=== PATIENT | male | born 1940 | race Caucasian/White ===

== ENCOUNTER 2016-10-02 11:56 | Inpatient (IN) ==
[2016-10-02] MEDS ORDERED: HYDROmorphone 2 MG/ML SYRINGE IV PRN (12:51)
[2016-10-02] MEDS ORDERED: oxyCODONE/APAP 5/325MG TABLET PO PRN (12:51)
[2016-10-02 13:48] LABS: Mean Cell Volume 88.4 fL (80.0-100.0); Mean Corpuscular HGB Conc 33.6 g/dL (31.0-36.0); Mean Corpuscular Hemoglobin 29.7 pg (26.0-34.0); Platelet Count 277 K/mcL (140-440); RBC 4.26 M/mcL (4.50-5.90); Red Cell Distribution Width 15.4 % (11.5-14.5)
[2016-10-02] MEDS ORDERED: 0.9 % SODIUM CHLORIDE 10 ML SYRINGE IV SCH (14:00)
[2016-10-02 14:07] LABS: Eosinophils % (Manual) 6 % (0-7); Lymphocytes % 11 % (15-49); Monocytes % (Manual) 5 % (1-12); Platelet Estimate NORMAL (NORMAL); RBC Morphology NORMAL (NORMAL); Segmented Neutrophils % 78 % (38-78)
[2016-10-02 14:14] LABS: ALT/SGPT 10 U/l (0-40); Albumin 4.2 gm/dL (3.2-5.2); Albumin/Globulin Ratio 1.1 (1.0-2.3); Alkaline Phosphatase 69 U/L (39-117); Bilirubin,Direct < 0.2 mg/dL (0.0-0.3); Blood Urea Nitrogen 18 mg/dl (8-23); Gamma Glutamyl Transpeptidase 52 U/L (8-61); Magnesium 1.9 mg/dL (1.6-2.5); Uric Acid 8.2 mg/dL (2.5-8.0)
[2016-10-02] MEDS: 0.9 % SODIUM CHLORIDE 1,000 ML IV SCH (14:54)
[2016-10-02] MEDS: 0.9 % SODIUM CHLORIDE 10 ML SYRINGE IV SCH ×2 (14:54→21:59)
[2016-10-02] MEDS ORDERED: PHYTONADIONE 10 MG in 0.9 % SODIUM CHLORIDE 50 ML IV ONE (17:40)
[2016-10-02] MEDS ORDERED: 0.9 % SODIUM CHLORIDE 250 ML IV SCH (17:45)
[2016-10-02] MEDS: PHYTONADIONE 10 MG/ML AMPUL SQ SCH (18:12)
--- NOTE | 2016-10-02 18:19 | General Surg History&Physical ---
History of Present Illness Patient information: Note initiated : 10/02/16 at 6:16 pm Service Date, if different from initiated Date: [] Patient: Julian Nettles a 76 y/o M admitted on 10/02/16 for pneumothorax. Chief Complaint: [] HPI: Mr. Nettles is a 76 year old M with history of persistent pneumothorax left side. The patient has a left lung mass that was biopsied on 26 September. He had a resultant pneumothorax that was monitored for 24 hours but increased in size. He finally had a catheter thoracostomy with Heimlich valve placed on 28 September. The pneumothorax which was 20% decreased in size initially but subsequently has increased in size and is now greater than 15%. The patient has been on Coumadin and needs to have his clotting parameters corrected. He will keep the Heimlich valve in place until I can give him vitamin K and fresh frozen plasma. He and his were counseled for closed tube thoracostomy which will be done tomorrow. He will then be hooked to suction and monitored until his pneumothorax has resolved. Review of Systems - Constitutional headache(s), malaise, weakness - EENT Nose, mouth and throat: abnormal hearing - Cardiovascular pedal edema, no chest pain at rest, no claudication, no dyspnea on exertion - Respiratory pain with cough, other (Moderate shortness of breath;) - Gastrointestinal no bloating, no constipation, no dysphagia, no fecal incontinence, no nausea, no vomiting - Genitourinary difficulty urinating, no urinary incontinence - Musculoskeletal abnormal gait, arthralgias, joint swelling, muscle weakness - Integumentary no changing lesions, no new lesions, no pruritus, no rash - Neurological confusion, dizziness, weakness, no abnormal gait - Psychiatric confusion, other (Early dementia) - Endocrine no excessive sweating, no palpitations - Hematologic/Lymphatic easy bleeding, easy bruising, no lymphadenopathy - Allergic/Immunologic no tongue swelling, no throat swelling, no itchy eyes, no uticaria, no wheezing , no lip swelling Past History Past medical history: Diabetes mellitus Atrial fibrillation Chronic Coumadin therapy Stroke 1997 Degenerative arthritis Dementia Past surgical history: AICD 2000 Coronary artery bypass graft 1992 Past family history: Mother due to coronary artery disease and COPD Father due to coronary artery disease Medications and Allergies Home Medications Medication Instructions Recorded Confirmed Type Atenolol [Tenormin] 50 mg PO BID 02/28/15 09/26/16 History Atorvastatin [Lipitor] 20 mg PO HS 02/28/15 09/26/16 History Cholecalciferol (Vitamin D3) 50,000 unit PO WEEKLY 02/28/15 09/26/16 History [Vitamin D] Digoxin [Lanoxin] 250 mcg PO DAILY 02/28/15 09/26/16 History Ezetimibe [Zetia] 10 mg PO DAILY 02/28/15 09/26/16 History Megestrol Acetate [Megace] 20 mg PO BID 02/28/15 09/26/16 History Memantine [Namenda] 10 mg PO DAILY 02/28/15 09/26/16 History Omeprazole [PriLOSEC] 20 mg PO ACB 02/28/15 09/26/16 History Rivastigmine [Exelon] 1 each TD 02/28/15 History Spironolactone [Aldactone] 25 mg PO DAILY 02/28/15 09/26/16 History Warfarin [Coumadin] 2 mg PO DAILY 02/28/15 09/26/16 History Warfarin [Coumadin] 4 mg PO DAILY 02/28/15 09/26/16 History glipiZIDE [Glucotrol Xl] 5 mg PO HS 02/28/15 09/26/16 History metFORMIN HCL [Glucophage] 500 mg PO BID 02/28/15 09/26/16 History morphine [Ms Contin] 30 mg PO HS 02/28/15 09/26/16 History Allergies Allergy/AdvReac Type Severity Reaction Status Date / Time Sulfa (Sulfonamide Allergy Severe SWELLING Verified 09/26/16 10:35 Antibiotics) [SULFA (SULFONAMIDE ANTIBIOTICS)] Exam Temp Pulse Resp BP Pulse Ox 96.6 F L 50 L 16 123/69 96 10/02/16 16:00 10/02/16 13:01 10/02/16 16:00 10/02/16 16:00 10/02/16 16:00 - General physical appearance well developed, well nourished, no distress - Eyes PERRL, normal ocular movement - ENT normal pinna, normal nares, normal mucosa, no hearing loss, no congestion, dentures (Full dentures) - Head Head exam IM: Present: atraumatic, normocephalic - Neck no masses, no bruits, trachea midline, no lymphadectomy, no venous distension - Cardiovascular Cardiovascular exam IM: Present: normal rate and rhythm, RRR, +S1, +S2. Absent : JVD - Respiratory normal expansion, normal respiratory effort, clear to percussion, other (Coarse tubular breath sounds both lower lobes but with decreased breath sounds on the left even at the apex) - Abdomen Abdomen: Present: soft, non tender, bowel sounds. Absent: organomegaly, masses Hernia: Present: none - Genitourinary Present: normal penis with no external lesions - Integumentary Present: no rash, no growths, no abnormal pigmentation - Neurologic Present: normal coordination, normal sensation - Musculoskeletal Present: normal posture, other (Irregular gait with assist with a cane) - Psychiatric Present: oriented to time, oriented to person, oriented to place, speech is normal, other (Early dementia for time and place) Assessment and Plan (1) Pneumothorax of left lung after biopsy Patient will have closed tube thoracostomy after his clotting parameters are corrected. The needle catheter and Heimlich valve will remain in place until the chest tube is inserted Status: Acute (2) Diabetes mellitus type 2 in nonobese Status: Acute (3) Atrial fibrillation Status: Acute (4) Dementia Status: Acute
[2016-10-02] MEDS: FAMOTIDINE/PF 20 MG/2 ML VIAL IV SCH (21:59)
[2016-10-03] MEDS: PHYTONADIONE 10 MG/ML AMPUL SQ SCH (02:26)
[2016-10-03] MEDS: 0.9 % SODIUM CHLORIDE 1,000 ML IV SCH ×3 (02:30→17:27)
[2016-10-03] MEDS: 0.9 % SODIUM CHLORIDE 10 ML SYRINGE IV SCH ×3 (05:36→20:34)
[2016-10-03] MEDS ORDERED: 0.9 % SODIUM CHLORIDE 250 ML IV SCH (07:45)
[2016-10-03] MEDS: morphine 30 MG TAB.SR.12H PO SCH ×2 (08:07→20:31)
[2016-10-03] MEDS: MEMANTINE 10 MG TABLET PO SCH ×2 (08:09→20:31)
[2016-10-03] MEDS: OMEPRAZOLE 20 MG CAPSULE PO SCH (08:09)
--- NOTE | 2016-10-03 08:09 | XRay Report ---
HISTORY: Reason for Exam:f/u of pneumothorax FINDINGS: There is a small left apical pneumothorax which is less than 5% in volume. This has improved significantly since 10/02/16. The Heimlich chest tube remains positioned medially at the left apex. There is still consolidation in the left lower lobe which may be a combination of tumor and superimposed atelectasis/pneumonia. 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 The heart size is normal. IMPRESSION: Improving left-sided pneumothorax Interpreted and Authenticated by: Rajinder Mallory 10/03/16
[2016-10-03] MEDS: metFORMIN 500 MG TABLET PO SCH ×2 (08:10→17:39)
[2016-10-03] MEDS: ATENOLOL 50 MG TABLET PO SCH ×2 (08:10→20:31)
[2016-10-03] MEDS: FAMOTIDINE/PF 20 MG/2 ML VIAL IV SCH ×2 (08:10→20:31)
[2016-10-03] MEDS: MEGESTROL ACETATE 40 MG TABLET PO SCH ×2 (13:31→20:32)
[2016-10-03] MEDS: RIVASTIGMINE 9.5 MG TOPICAL SCH (13:32)
--- NOTE | 2016-10-03 13:35 | General Surgery Progress Note ---
Subjective Patient reports: feels better, pain is less, tolerating a regular diet, afebrile Narrative: Note initiated : 10/03/16 at 1:33 pm Service Date, if different from initiated Date: [] Patient: Julian Nettles 76 y/o M admitted on 10/02/16 for Pneumothorax of Left Lung after Biopsy. Chief Complaint: [Mr. Mayberry feels much better. He does not have any increased shortness of breath. He had no difficulty during the night. Chest x-ray this morning shows his pneumothorax is down to 5%. Since he is improving I would delay insertion of the larger chest tube. I have elected to place the catheter tube to waterseal with 20 cm of continuous suction. Hopefully this will be adequate enough to reduce his pneumothorax and he will not need to have a larger chest tube placed. I discussed this with the patient and his . I also discussed it with radiology who is agreeable with this approach.] Objective Temp Pulse Resp BP Pulse Ox 97.8 F 90 16 119/68 99 10/03/16 12:59 10/03/16 12:59 10/03/16 12:59 10/03/16 12:59 10/03/16 12:59 - Additional Data Intake & Output - Last 24 hours: Intake & Output 10/01/16 10/02/16 10/03/16 10/04/16 05:59 05:59 05:59 05:59 Intake Total 926 / 926 2309 / 2309 Output Total 450 / 450 1260 / 1260 Balance 476 / 476 1049 / 1049 Weight 150 lb - General physical appearance no distress, chronically ill - Eyes PERRL - ENT no congestion - Neck no venous distension - Respiratory other (Still with coarse tubular breath sounds at both bases much more prominent on the left than on the right but with good breath sounds bilaterally) - Cardiovascular Cardiovascular exam: Present: normal rate and rhythm, irregular rhythm, +S1, + S2. Absent: JVD - Abdomen soft, non tender ( abdomen is benign and nontender.) - Musculoskeletal other (Needs assistance with gait) - Psychiatric other ( oriented to person and place with poor long and short-term memory) - Labs 10/02/16 13:13 10/02/16 13:13 Diabetes panel 10/02/16 Range/Units 13:13 Sodium 138 (133-145) mmol/L Potassium 4.9 (3.3-5.1) mmol/L Chloride 101 (96-108) mmol/L Carbon Dioxide 24 (22-30) mmol/L BUN 18 (8-23) mg/dl Creatinine 1.2 (0.7-1.2) mg/dl Glucose 87 (70-105) mg/dL Calcium 10.2 (8.6-10.4) mg/dl AST 12 (0-37) U/l ALT 10 (0-40) U/l Alkaline Phosphatase 69 (39-117) U/L Total Protein 8.1 (5.9-8.4) gm/dL Albumin 4.2 (3.2-5.2) gm/dL Triglycerides 347 H (<150) mg/dl Calcium panel 10/02/16 Range/Units 13:13 Calcium 10.2 (8.6-10.4) mg/dl Phosphorus 3.7 (2.7-4.5) mg/dL Albumin 4.2 (3.2-5.2) gm/dL Pituitary panel 10/02/16 Range/Units 13:13 Sodium 138 (133-145) mmol/L Potassium 4.9 (3.3-5.1) mmol/L Chloride 101 (96-108) mmol/L Carbon Dioxide 24 (22-30) mmol/L BUN 18 (8-23) mg/dl Creatinine 1.2 (0.7-1.2) mg/dl Glucose 87 (70-105) mg/dL Calcium 10.2 (8.6-10.4) mg/dl Adrenal panel 10/02/16 Range/Units 13:13 Sodium 138 (133-145) mmol/L Potassium 4.9 (3.3-5.1) mmol/L Chloride 101 (96-108) mmol/L Carbon Dioxide 24 (22-30) mmol/L BUN 18 (8-23) mg/dl Creatinine 1.2 (0.7-1.2) mg/dl Glucose 87 (70-105) mg/dL Calcium 10.2 (8.6-10.4) mg/dl Total Bilirubin 0.5 (0.0-1.0) mg/dL AST 12 (0-37) U/l ALT 10 (0-40) U/l Alkaline Phosphatase 69 (39-117) U/L Total Protein 8.1 (5.9-8.4) gm/dL Albumin 4.2 (3.2-5.2) gm/dL Assessment and Plan (1) Pneumothorax of left lung after biopsy Status: Acute Assessment and plan: Overall degree of pneumothorax is improved Patient's catheter is hooked to water seal of 20 cm of suction. We will continue this for 24 hours Before inserting chest tube Current Visit: Yes (2) Diabetes mellitus type 2 in nonobese Status: Acute Current Visit: Yes (3) Atrial fibrillation Status: Acute Current Visit: Yes (4) Dementia Status: Acute Current Visit: Yes - Time Spent With Patient Total time spent is greater than 50% in coordination of care (as documented) at patient's floor/unit and/or counseling patient:
[2016-10-03] MEDS: DIGOXIN 125 MCG TABLET PO SCH (13:38)
[2016-10-03] MEDS: INSULIN LISPRO 1 UNIT/0.01 ML UNIT SQ SCH ×2 (17:38→20:30)
[2016-10-03] MEDS: glipiZIDE 5 MG TAB.XL.24H PO SCH (20:31)
[2016-10-04] MEDS: 0.9 % SODIUM CHLORIDE 1,000 ML IV SCH ×3 (01:05→20:54)
[2016-10-04] MEDS: 0.9 % SODIUM CHLORIDE 10 ML SYRINGE IV SCH ×3 (06:07→20:55)
[2016-10-04] MEDS: INSULIN LISPRO 1 UNIT/0.01 ML UNIT SQ SCH ×4 (07:12→20:54)
[2016-10-04] MEDS: OMEPRAZOLE 20 MG CAPSULE PO SCH (07:23)
--- NOTE | 2016-10-04 08:32 | XRay Report ---
HISTORY: Reason for Exam:Follow-up of pneumothorax FINDINGS: There is a residual tiny left apical pneumothorax. This has improved since 10/03/16. The chest tube remains positioned medially at the left apex. The consolidation in the left lower lobe is stable. The heart size is normal. IMPRESSION: Continued improvement of the left apical pneumothorax Interpreted and Authenticated by: Rajinder Mallory 10/04/16
[2016-10-04] MEDS: FAMOTIDINE/PF 20 MG/2 ML VIAL IV SCH ×2 (09:03→20:53)
[2016-10-04] MEDS: morphine 30 MG TAB.SR.12H PO SCH ×2 (09:04→20:55)
[2016-10-04] MEDS: ATENOLOL 50 MG TABLET PO SCH ×2 (09:04→20:55)
[2016-10-04] MEDS: MEMANTINE 10 MG TABLET PO SCH ×2 (09:05→20:55)
[2016-10-04] MEDS: metFORMIN 500 MG TABLET PO SCH ×2 (09:05→17:47)
[2016-10-04] MEDS: MEGESTROL ACETATE 40 MG TABLET PO SCH ×2 (09:06→20:55)
[2016-10-04] MEDS: RIVASTIGMINE 9.5 MG TOPICAL SCH (09:06)
--- NOTE | 2016-10-04 12:13 | General Surgery Progress Note ---
Subjective Patient reports: feels better, still having pain, tolerating a regular diet, flatus, bowel movement, afebrile Narrative: Note initiated : 10/04/16 at 12:11 pm Service Date, if different from initiated Date: [] Patient: Julian Nettles 76 y/o M admitted on 10/02/16 for Pneumothorax of Left Lung after Biopsy. Chief Complaint: [Mr. Mayberry is doing well. He denies having any shortness of breath. He has only mild anterior chest pain on the left in the area of insertion of the pleural catheter. He has not had any drainage through the catheter overnight. The catheter remains on 20 cm of suction with waterseal.] Objective Temp Pulse Resp BP Pulse Ox 98.3 F 52 L 16 112/59 97 10/04/16 07:05 10/04/16 07:05 10/04/16 07:45 10/04/16 07:05 10/04/16 07:05 - Additional Data Intake & Output - Last 24 hours: Intake & Output 10/02/16 10/03/16 10/04/16 10/05/16 05:59 05:59 05:59 05:59 Intake Total 926 / 926 4430 / 4430 400 / 400 Output Total 450 / 450 1960 / 1960 275 / 275 Balance 476 / 476 2470 / 2470 125 / 125 Weight 150 lb 153 lb - General physical appearance well developed, no distress - Eyes PERRL - ENT no congestion - Neck no venous distension - Respiratory other (Decreased breath sounds at the bases with tubular breath sounds on the left; good sounds at the apices.) - Cardiovascular Cardiovascular exam: Present: irregular rhythm, +S1, +S2. Absent: JVD - Abdomen soft, non tender (Normal abdominal exam without abnormal findings) - Integumentary no rash, no growths, no abnormal pigmentation - Neurologic normal coordination, normal sensation - Musculoskeletal normal posture, other (Requires assistance with a cane for ambulation) - Psychiatric other (Oriented to person and place ;long and short-term memory are altered.) - Labs 10/02/16 13:13 10/02/16 13:13 Assessment and Plan (1) Pneumothorax of left lung after biopsy Status: Acute Assessment and plan: Patient has minimal apical pneumothorax. We will keep the small catheter on suction and hopefully he will have complete resolution of the pneumothorax and can be placed on waterseal tomorrow. Current Visit: Yes (2) Diabetes mellitus type 2 in nonobese Status: Acute Current Visit: Yes (3) Atrial fibrillation Status: Acute Current Visit: Yes (4) Dementia Status: Acute Current Visit: Yes - Time Spent With Patient Total time spent is greater than 50% in coordination of care (as documented) at patient's floor/unit and/or counseling patient:
[2016-10-04] MEDS: DIGOXIN 125 MCG TABLET PO SCH (14:50)
[2016-10-04] MEDS: glipiZIDE 5 MG TAB.XL.24H PO SCH (20:55)
[2016-10-05] MEDS: 0.9 % SODIUM CHLORIDE 10 ML SYRINGE IV SCH ×3 (05:45→20:55)
[2016-10-05] MEDS: OMEPRAZOLE 20 MG CAPSULE PO SCH (07:38)
[2016-10-05] MEDS: INSULIN LISPRO 1 UNIT/0.01 ML UNIT SQ SCH ×4 (07:38→20:54)
[2016-10-05] MEDS: MEGESTROL ACETATE 40 MG TABLET PO SCH ×2 (08:42→20:55)
[2016-10-05] MEDS: RIVASTIGMINE 9.5 MG TOPICAL SCH (08:42)
[2016-10-05] MEDS: ATENOLOL 50 MG TABLET PO SCH ×3 (08:43→20:57)
[2016-10-05] MEDS: morphine 30 MG TAB.SR.12H PO SCH ×2 (08:43→20:55)
[2016-10-05] MEDS: metFORMIN 500 MG TABLET PO SCH ×2 (08:44→17:45)
[2016-10-05] MEDS: FAMOTIDINE/PF 20 MG/2 ML VIAL IV SCH ×2 (08:45→20:55)
[2016-10-05] MEDS: MEMANTINE 10 MG TABLET PO SCH ×2 (08:45→20:54)
--- NOTE | 2016-10-05 13:04 | General Surgery Progress Note ---
Subjective Patient reports: feels better, tolerating a regular diet, afebrile Narrative: Note initiated : 10/05/16 at 1:01 pm Service Date, if different from initiated Date: [] Patient: Julian Nettles 76 y/o M admitted on 10/02/16 for Pneumothorax of Left Lung after Biopsy. Chief Complaint: [Patient is doing well without complaints. He does not have shortness of breath. There is no demonstrated air leak. Chest x-ray this morning shows a minimal pneumothorax at the apex about 3% or less. Discussed with radiologist who confirms this. The patient is taken off suction and will remain on waterseal overnight if he remains stable the catheter will be removed and he can be discharged tomorrow.] Objective Temp Pulse Resp BP Pulse Ox 97.6 F 60 20 120/64 95 10/05/16 11:39 10/05/16 07:28 10/05/16 11:39 10/05/16 11:39 10/05/16 11:39 - Additional Data Intake & Output - Last 24 hours: Intake & Output 10/03/16 10/04/16 10/05/16 10/06/16 05:59 05:59 05:59 05:59 Intake Total 926 / 926 4430 / 4430 3050 / 3050 780 / 780 Output Total 450 / 450 1960 / 1960 2049 1250 / 1250 Balance 476 / 476 2470 / 2470 1000 / 1000 -470 / -470 Weight 150 lb 153 lb 158 lb - General physical appearance no distress - Respiratory normal respiratory effort, clear to auscultation - Cardiovascular Cardiovascular exam: Present: bradycardia, irregular rhythm, +S1. Absent: gallop, JVD - Abdomen soft, non tender - Integumentary no rash, no growths, no abnormal pigmentation - Neurologic normal coordination, normal sensation - Musculoskeletal other - Psychiatric oriented to person, oriented to place - Labs 10/02/16 13:13 10/02/16 13:13 - Imaging Chest x-ray: report reviewed, image reviewed Assessment and Plan (1) Pneumothorax of left lung after biopsy Status: Acute Assessment and plan: Patient has minimal apical pneumothorax. The suction on the catheter is discontinued and the patient is maintained on waterseal only. If chest x-ray is stable in the morning catheter will be discontinued and he may be discharged Current Visit: Yes (2) Diabetes mellitus type 2 in nonobese Status: Acute Current Visit: Yes (3) Atrial fibrillation Status: Acute Current Visit: Yes (4) Dementia Status: Acute Current Visit: Yes - Time Spent With Patient Total time spent is greater than 50% in coordination of care (as documented) at patient's floor/unit and/or counseling patient:
--- NOTE | 2016-10-05 15:39 | XRay Report ---
HISTORY: Reason for Exam:f/u of pneumothorax FINDINGS: There is a persistent small left apical pneumothorax which is less than 5% volume. The chest tube remains positioned at the apex. This has not changed is still consolidation in the left lower lobe. The heart size is normal. IMPRESSION: Persistent small left apical pneumothorax which has not yet resolved. Dr. Gallegos was called with the results Interpreted and Authenticated by: Rajinder Mallory 10/05/16
[2016-10-05] MEDS: DIGOXIN 125 MCG TABLET PO SCH (16:50)
[2016-10-05] MEDS: 0.9 % SODIUM CHLORIDE 1,000 ML IV SCH (17:23)
[2016-10-05] MEDS: glipiZIDE 5 MG TAB.XL.24H PO SCH (20:55)
[2016-10-06] MEDS: 0.9 % SODIUM CHLORIDE 10 ML SYRINGE IV SCH ×2 (05:08→14:16)
[2016-10-06] MEDS: INSULIN LISPRO 1 UNIT/0.01 ML UNIT SQ SCH ×2 (07:03→11:11)
[2016-10-06] MEDS: OMEPRAZOLE 20 MG CAPSULE PO SCH (07:23)
[2016-10-06] MEDS: metFORMIN 500 MG TABLET PO SCH (07:53)
[2016-10-06] MEDS: FAMOTIDINE/PF 20 MG/2 ML VIAL IV SCH (08:54)
[2016-10-06] MEDS: ATENOLOL 50 MG TABLET PO SCH (08:54)
[2016-10-06] MEDS: MEMANTINE 10 MG TABLET PO SCH (08:54)
[2016-10-06] MEDS: morphine 30 MG TAB.SR.12H PO SCH (08:54)
[2016-10-06] MEDS: MEGESTROL ACETATE 40 MG TABLET PO SCH (08:54)
[2016-10-06] MEDS: RIVASTIGMINE 9.5 MG TOPICAL SCH (08:57)
--- NOTE | 2016-10-06 11:58 | XRay Report ---
CLINICAL INFORMATION: Follow pneumothorax COMPARISON: 10/05/2016 FINDINGS: The heart is mildly enlarged but unchanged. Pacemaker leads in stable satisfactory position. Mediastinum and pulmonary vessels are normal. Small bore pigtail chest tube is in stable position overlying the left lung apex. There is only a tiny (less than 3%) is a left pneumothorax and small left pleural effusion. Moderate sized cavitary mass in the retrocardiac region is seen - as before. Other smaller nodular densities in both lung bases, known from CT, are only vaguely seen. IMPRESSION: 1. Tiny (less than 3%) left apical pneumothorax which is stable. Suggest test valve closure for two hours and repeat film. If there is no change after test closure, suggest tube removal 2. Cavitary mass in the left lung base and smaller nodules throughout both lung bases are known to represent metastases. There are unchanged Interpreted and Authenticated by: Andrey Noel 10/06/16
--- NOTE | 2016-10-06 13:49 | Discharge Summary ---
Providers - Providers Patient information: Note initiated : 10/06/16 at 1:45 pm Service Date, if different from initiated Date: [] Patient: Julian Nettles 76 y/o M admitted on 10/02/16 for Pneumothorax of Left Lung after Biopsy. Chief Complaint: [] Date of admission: 10/02/16 Discharge date: 10/06/16 Attending physician: Jordi Gallegos Hospitalization Hospital course: 76-year-old male admitted from the x-ray department with a persistent left pneumothorax. The patient developed a pneumothorax after percutaneous lung biopsy and a catheter was placed and connected to a Heimlich valve. Initially he had some decrease in the pneumothorax but over the next week it increased in size. He was admitted for a larger chest tube however he was fully anticoagulated on Coumadin and I had to correct his pro time with fresh frozen plasma and vitamin K. While waiting for this to occur over the next 30 hours his pneumothorax improved so I elected to place the small catheter to suction and waterseal. With suction and waterseal the pneumothorax decrease to 3% and remained that for the past 24 hours on waterseal alone. He does not have any evidence of air leak and he is felt to be stable enough for discharge home. The catheter was removed and a dressing was placed. He will follow-up in the office in 1 week and have a final chest x-ray at that time. Discharge diagnosis: Left pneumothorax post percutaneous lung biopsy Secondary discharge diagnosis: Adenocarcinoma of the lung New onset dementia Diabetes mellitus Chronic atrial fibrillation Reason for admission: Persistent left pneumothorax Procedures: None Complications: None Exam Temp Pulse Resp BP Pulse Ox 96.9 F L 58 L 16 137/81 96 10/06/16 11:30 10/06/16 06:39 10/06/16 11:30 10/06/16 11:30 10/06/16 11:30 - General physical appearance well developed, well nourished, no distress, chronically ill - Eyes PERRL, normal ocular movement - ENT normal pinna, normal nares, normal mucosa, no hearing loss, no congestion - Head Head exam IM: Present: atraumatic, normocephalic - Neck no masses, no bruits, trachea midline, no lymphadectomy, no venous distension - Cardiovascular Cardiovascular exam IM: Present: normal rate and rhythm - Respiratory normal expansion, normal respiratory effort, clear to percussion, clear to auscultation, other (Decreased breath sounds at both bases more prominent on the left) - Abdomen Abdomen: Present: soft, non tender, bowel sounds Hernia: Present: none - Integumentary Present: no rash, no growths, no abnormal pigmentation - Neurologic Present: normal coordination, normal sensation - Musculoskeletal Present: normal gait, normal posture - Psychiatric Present: oriented to person, oriented to place, speech is normal, other ( Altered mentation with poor short-term and long-term memory loss) Discharge Plan - Patient/Caregiver Discharge Instructions Activity: increase activity as tolerated Diet: Regular Diet Additional Instructions: Chest x-ray on 13 October 2016 Follow-up appointment on 14 October [address] until patient returns to the office - Follow up Plan Disposition: Home, Self-Care Prognosis: Good Rehab Potential: Good I certify that the patient requires SNF services.: No Overall status at discharge: patient is not back to baseline Pending Studies Resuscitation Status Full Code Diet Regular Diet Start ThuOct 03 Dinner Atenolol (Tenormin) 50 mg PO HS [facility] Last Admin: 10/05/16 20:57 Dose: Not Given Admin: 10/04/16 20:55 Dose: 50 mg Admin: 10/03/16 20:31 Dose: 50 mg Atenolol (Tenormin) 100 mg PO QAM [facility] Last Admin: 10/06/16 08:54 Dose: 100 mg Admin: 10/05/16 08:43 Dose: 100 mg Admin: 10/04/16 09:04 Dose: 100 mg Admin: 10/03/16 08:10 Dose: 100 mg Diagnostic Test (Pha) (Accu-Chek) 1 each FS ACHS [facility] Last Admin: 10/06/16 11:11 Dose: 1 each Admin: 10/06/16 07:56 Dose: 1 each Admin: 10/06/16 07:02 Dose: 1 each Admin: 10/05/16 20:54 Dose: 1 each Admin: 10/05/16 16:25 Dose: 1 each Admin: 10/05/16 12:50 Dose: 1 each Admin: 10/05/16 12:04 Dose: 1 each Admin: 10/05/16 07:38 Dose: 1 each Admin: 10/04/16 20:54 Dose: 1 each Admin: 10/04/16 16:46 Dose: 1 each Admin: 10/04/16 11:31 Dose: 1 each Admin: 10/04/16 07:11 Dose: 1 each Admin: 10/03/16 20:30 Dose: 1 each Admin: 10/03/16 17:47 Dose: 1 each Digoxin (Lanoxin) 250 mcg PO DAILY@1400 [facility] Last Admin: 10/05/16 16:50 Dose: Not Given Admin: 10/04/16 14:50 Dose: 250 mcg Admin: 10/03/16 13:38 Dose: 250 mcg Famotidine (Pepcid) 20 mg IV Q12 [facility] Last Admin: 10/06/16 08:54 Dose: 20 mg Admin: 10/05/16 20:55 Dose: 20 mg Admin: 10/05/16 08:45 Dose: 20 mg Admin: 10/04/16 20:53 Dose: 20 mg Admin: 10/04/16 09:03 Dose: 20 mg Admin: 10/03/16 20:31 Dose: 20 mg Admin: 10/03/16 08:10 Dose: 20 mg Admin: 10/02/16 21:59 Dose: 20 mg Glipizide (Glucotrol Xl) 5 mg PO HS [facility] Last Admin: 10/05/16 20:55 Dose: 5 mg Admin: 10/04/16 20:55 Dose: 5 mg Admin: 10/03/16 20:31 Dose: 5 mg Insulin Human Lispro (Humalog) 0 unit SQ ACHS [facility] PRN Reason: Protocol Last Admin: 10/06/16 11:11 Dose: Not Given Admin: 10/06/16 07:03 Dose: Admin: 10/05/16 20:54 Dose: Not Given Admin: 10/05/16 16:26 Dose: Not Given Admin: 10/05/16 12:05 Dose: Not Given Admin: 10/05/16 07:38 Dose: Not Given Admin: 10/04/16 20:54 Dose: Not Given Admin: 10/04/16 17:46 Dose: Not Given Admin: 10/04/16 11:32 Dose: Not Given Admin: 10/04/16 07:12 Dose: Not Given Admin: 10/03/16 20:30 Dose: Not Given Admin: 10/03/16 17:38 Dose: Not Given Megestrol Acetate (Megace) 40 mg PO BID [facility] Last Admin: 10/06/16 08:54 Dose: 40 mg Admin: 10/05/16 20:55 Dose: 40 mg Admin: 10/05/16 08:42 Dose: 40 mg Admin: 10/04/16 20:55 Dose: 40 mg Admin: 10/04/16 09:06 Dose: 40 mg Memantine (Namenda) 10 mg PO BID [facility] Last Admin: 10/06/16 08:54 Dose: 10 mg Admin: 10/05/16 20:54 Dose: 10 mg Admin: 10/05/16 08:45 Dose: 10 mg Admin: 10/04/16 20:55 Dose: 10 mg Admin: 10/04/16 09:05 Dose: 10 mg Admin: 10/03/16 20:31 Dose: 10 mg Admin: 10/03/16 08:09 Dose: 10 mg Metformin HCl (Glucophage) 1,000 mg PO BIDCC [facility] Last Admin: 10/06/16 07:53 Dose: 1,000 mg Admin: 10/05/16 17:45 Dose: 1,000 mg Admin: 10/05/16 08:44 Dose: 1,000 mg Admin: 10/04/16 17:47 Dose: 1,000 mg Admin: 10/04/16 09:05 Dose: 1,000 mg Admin: 10/03/16 17:39 Dose: 1,000 mg Admin: 10/03/16 08:10 Dose: 1,000 mg Morphine Sulfate (Ms Contin) 30 mg PO BID [facility] Last Admin: 10/06/16 08:54 Dose: 30 mg Admin: 10/05/16 20:55 Dose: 30 mg Admin: 10/05/16 08:43 Dose: 30 mg Admin: 10/04/16 20:55 Dose: 30 mg Admin: 10/04/16 09:04 Dose: 30 mg Admin: 10/03/16 20:31 Dose: 30 mg Admin: 10/03/16 08:07 Dose: 30 mg Omeprazole (Prilosec) 20 mg PO ACB [facility] Last Admin: 10/06/16 07:23 Dose: 20 mg Admin: 10/05/16 07:38 Dose: 20 mg Admin: 10/04/16 07:23 Dose: 20 mg Admin: 10/03/16 08:09 Dose: 20 mg Rivastigmine [Exelon (] 9.5 Mg Patch) 1 dose TOPICAL DAILY [facility] Last Admin: 10/06/16 08:57 Dose: 1 dose Admin: 10/05/16 08:42 Dose: 1 dose Admin: 10/04/16 09:06 Dose: 1 dose Admin: 10/03/16 13:32 Dose: 1 dose Sodium Chloride (Saline Flush) 10 ml IV Q8 [facility] Last Admin: 10/06/16 05:08 Dose: 10 ml Admin: 10/05/16 20:55 Dose: 10 ml Admin: 10/05/16 16:49 Dose: 10 ml Admin: 10/05/16 05:45 Dose: Not Given Admin: 10/04/16 20:55 Dose: Not Given Admin: 10/04/16 15:57 Dose: Not Given Admin: 10/04/16 06:07 Dose: Not Given Admin: 10/03/16 20:34 Dose: Not Given Admin: 10/03/16 14:26 Dose: Not Given Admin: 10/03/16 05:36 Dose: Not Given Admin: 10/02/16 21:59 Dose: Not Given Admin: 10/02/16 14:54 Dose: 10 ml Shift Summary 10/06/16 03:40 Shift Summary by Rose Mary Pinto Addendum entered by Rose Mary Pinto 10/06/16 05:40: Attends in place secondary to occasional urinary incontinence. Original Note: Patient is alert and oriented to person only. He is pleasant, cooperative with cares and reorients easily. 20g to LT wrist is saline locked. Hx AFIB and DM. Bed alarm is on. He has been voiding via urinal through the night. Pleur-evac in place w/continuous water seal only. Suction was discontinued yesterday per doctor's orders. Lung sounds clear w/diminishes left lower lobe. Knee high brooke hose in place. Mepilex dressing in place to coccyx is clean, dry and intact. No coverage needed for 2100 BG of 140. Patient hopes to discharge home today if stable. Initialized on 10/06/16 03:40 - END OF NOTE
[2016-10-06] MEDS: DIGOXIN 125 MCG TABLET PO SCH (14:12)
== END 2016-10-06 15:00 | disposition home or self-care (01) | DRG 200 ==
LOC: MEDSUR 12:00
PROVIDERS: ADMIT Family Medicine Adult Medicine; ATTEND Family Medicine Adult Medicine